=== PATIENT | female | born 1950 | race Caucasian/White ===

== ENCOUNTER → 2017-05-16 | Outpatient (CLI) | payer OTHER | END | disposition home or self-care (01) | LOC: OIH 14:51 | PROVIDERS: ATTEND Internal Medicine | DX: Z13.6 Encounter for screening for cardiovascular disorders (principal) | CPT/HCPCS: 75571 ==

== ENCOUNTER → 2019-07-02 | Outpatient (CLI) | payer OTHER | END | disposition home or self-care (01) | LOC: RAH 08:09 | PROVIDERS: ATTEND Internal Medicine | DX: Z12.31 Encounter for screening mammogram for malignant neoplasm of breast (principal) | CPT/HCPCS: 77067 ==

== ENCOUNTER → 2020-05-18 | Outpatient (CLI) | payer OTHER | END | disposition home or self-care (01) | LOC: OIH 14:14 | PROVIDERS: ATTEND Internal Medicine | DX: M19.071 Primary osteoarthritis, right ankle and foot (principal); M19.072 Primary osteoarthritis, left ankle and foot; M19.042 Primary osteoarthritis, left hand; M19.041 Primary osteoarthritis, right hand; M19.011 Primary osteoarthritis, right shoulder | CPT/HCPCS: 73030; 73630 ==

== ENCOUNTER → 2021-06-08 | Outpatient (CLI) | payer OTHER | END | disposition home or self-care (01) | LOC: RAH 14:46 | PROVIDERS: ATTEND Internal Medicine | DX: R92.1 Mammographic calcification found on diagnostic imaging of breast (principal); R92.8 Other abnormal and inconclusive findings on diagnostic imaging of breast | CPT/HCPCS: 76641; 77065 ==

== ENCOUNTER → 2022-06-29 | Outpatient (CLI) | payer OTHER | END | disposition home or self-care (01) | LOC: RAH 13:27 | PROVIDERS: ATTEND Nurse Practitioner Family | DX: Z12.31 Encounter for screening mammogram for malignant neoplasm of breast (principal) | CPT/HCPCS: 77067 ==

== ENCOUNTER → 2023-07-19 | Outpatient (CLI) | payer OTHER | END | disposition home or self-care (01) | LOC: RAH 14:00 | PROVIDERS: ATTEND Internal Medicine | DX: Z12.31 Encounter for screening mammogram for malignant neoplasm of breast (principal) | CPT/HCPCS: 77067 ==

== ENCOUNTER → 2023-09-12 | Outpatient (CLI) | payer OTHER | END | disposition home or self-care (01) | LOC: RAH 10:08 | PROVIDERS: ATTEND Internal Medicine | DX: M85.89 Other specified disorders of bone density and structure, multiple sites (principal); Z78.0 Asymptomatic menopausal state | CPT/HCPCS: 77080 ==

== ENCOUNTER → 2023-12-20 | Outpatient (CLI) | payer OTHER | END | disposition home or self-care (01) | LOC: RAH 08:09 | PROVIDERS: ATTEND Internal Medicine | DX: N32.89 Other specified disorders of bladder (principal); R10.30 Lower abdominal pain, unspecified | CPT/HCPCS: 76700; 76857 ==

== ENCOUNTER 2024-04-12 09:29 | Emergency (ER) | payer OTHER ==
[~2024-04-12] VITALS: Ht 149.9 cm; Wt 65.8 kg
[~2024-04-12 09:29] MED LIST: APIX5TAB PO; ATOR40TA69 PO; BENZ-226 PO; CEFD300C3 PO; CYAN-35 PO; DOXY100T2 PO; DULO60CA64 PO; FLUT16H NS; FOLI1 PO; INFL100I INJ; INUL2TAB5 PO; LACT10SO9 PO; LORA10TA7 PO; MELA5CAP PO; METH2.5T6 PO; PRED20B PO; PRED5TAB PO
--- NOTE | 2024-04-12 10:13 | ERN ---
ED Note History of Present Illness Stated Complaint: RIGHT LEG Chief Complaint: Lower Extremity Pain/Injury Time Seen by MD: 10:03 Dictation: PATIENT IS A 73-YEAR-OLD FEMALE COMING IN WITH RIGHT CALF PAIN AND SWELLING ONSET TWO DAYS PRIOR TO ARRIVAL NO FEVER NO CHILLS NO BACK PAIN NO SCIATICA. SHE HAS A HISTORY OF PES AND WAS JUST DISCHARGED FROM [facility] TWO DAYS AGO AND HAS BEEN TREATED FOR COMMUNITY-ACQUIRED PNEUMONIA AND RESIDUAL PE. DISTAL NEUROVASCULAR CMS GROSSLY INTACT TO RIGHT LEG. LEG IS WARM WITH DISTAL REFILL BRISK Allergies: Coded Allergies: No Known Drug Allergies (Unverified Allergy, Unknown, 04/05/24) Home Meds Active Scripts Cefdinir (Cefdinir) 300 Mg Capsule, 1 CAP PO BID for 10 Days, #20 CAP 0 Refills Prov:LAYA CANDELARIA 04/10/24 Prednisone (Deltasone/Orasone [Bulk]) 20 Mg Tab, 20 MG PO DAILY, #5 TAB 0 Refills Prov:LAYA CANDELARIA 04/10/24 Doxycycline Hyclate (Doxycycline Hyclate) 100 Mg Tablet, 100 MG PO BID, #10 TAB 0 Refills Prov:LAYA CANDELARIA 04/10/24 Benzonatate (Benzonatate) 100 Mg Capsule, 200 MG PO Q8H, #30 CAP 0 Refills as needed for cough Prov:LAYA CANDELARIA 04/10/24 Atorvastatin Calcium (LIPITOR) 40 Mg Tablet, 40 MG PO HS, #30 TAB 1 Refill Prov:LAYA CANDELARIA 04/10/24 Apixaban (Eliquis) 5 Mg Tablet, 10 MG PO BID, #35 TAB 1 Refill take by mouth 2 tablets twice a day for 4 days then 1 tablet twice a day from then on Prov:LAYA CANDELARIA 04/10/24 Reported Medications Infliximab (Remicade) 100 Mg Inj, 100 MG INJ AD for RHEUMATOID ARTHRITIS, ML INFUSION GIVEN IN MD OFFICE EVREY OTHER MONTH 04/06/24 Cyanocobalamin (Vitamin B-12) (Vitamin B-12) 1,000 Mcg Capsule, 1 CAP PO DAILY for 30 Days, #30 CAP 0 Refills 04/06/24 Prednisone (Prednisone) 5 Mg Tablet, 1 TAB PO DAILY for 30 Days, #30 TAB 0 Refills 04/06/24 Methotrexate Sodium (Methotrexate) 2.5 Mg Tablet, 6 TAB PO QWEEK for 28 Days, #24 TAB 0 Refills 04/06/24 Melatonin (Melatonin) 5 Mg Capsule, 1 CAP PO HS for sleep for 30 Days, #30 CAP 0 Refills 04/06/24 Loratadine (Loratadine) 10 Mg Tablet, 10 MG PO DAILY, TAB 04/06/24 Inulin (Fiber Gummies) 2 Gram Tab.chew, 2 GM PO DAILY, TAB.CHEW 04/06/24 Lactulose (Lactulose) 20 Gram/30 Ml Solution, 20 GM PO DAILY PRN for CONSTIPATION, ML 04/06/24 Folic Acid (Folvite) 1 Mg Tab, 1 MG PO DAILY, TAB 04/06/24 Fluticasone Propionate (Fluticasone Propionate) 50 Mcg/Actuation [place].susp, 2 SPRAY NS BID, #16 GM 0 Refills 04/06/24 Duloxetine HCl (Duloxetine HCl) 60 Mg Capsule.dr, 1 CAP PO DAILY for 30 Days, #30 CAP 0 Refills 04/06/24 Discontinued Reported Medications Simvastatin (Simvastatin) 20 Mg Tablet, 1 TAB PO HS for 30 Days, #30 TAB 0 Refills 04/06/24 Past Medical History Past Medical History: COPD, Other Additional Past Medical Hx: RA, OSTOPENIA, PNA, PE. Surgical History: Other Surgical History Other: HERNIA SXX3 History: Not Applicable RN Note Reviewed/Agreed w/PFSH: Yes Review of System Dictation CONSTITUTIONAL: Negative except for HPI HEAD/FACE: Negative except for HPI EENT: Negative except for HPI RESPIRATORY: Negative except for HPI GASTROINTESTINAL/ABDOMINAL: Negative except for HPI GENITOURINARY: Negative except for HPI MUSCULOSKELETAL: Negative except for HPI right leg pain with calf tell swelling tenderness INTEGUMENTARY: Negative except for HPI NEUROLOGICAL/PSYCH: Negative except for HPI HEMATOLOGIC/LYMPHATIC: Negative except for HPI All Systems Negative, Except as noted above. 13 point review of systems assessed and all negative except for above. Initial Vital Sign VS Vital Signs Date Time Temp Pulse Resp B/P (MAP) Pulse Ox O2 Delivery O2 Flow Rate FiO2 04/12/24 09:33 98.1 115 22 149/87 97 Room Air 0 04/12/24 09:39 21 Physical Exam Dictation Vital Signs reviewed General Appearance: Alert, oriented x 3, mild acute distress, well developed, nourished. Head and Face: non-traumatic. Eyes: PERRL, pink conjunctivas, eyelid no trauma, anterior chamber with arcus senilis. Ears: Pinnas intact and no signs of trauma or erythema ear canals clear and no discharge TM no erythema Nose: No discharge, no bleeding. Oropharynx: Mouth normal, tongue pink, pharynx clear,no erythema, tonsils no exudates, no abscesses noted, mucous membrane moist Neck: Supple, non-tender, no thyromegaly, no masses, no JVD, no bruits Breast:Deferred Chest:No tenderness, no crepitus, no paradoxical movement, no retractions Lungs:Clear, well-ventilated, symmetric, no rales, no wheezing, no rhonchi, no stridor, good breath sounds bilaterally Heart: Regular rate, regular rhythm, no murmur, no gallops Vascular: no peripheral edema, Abdomen: Soft, positive bowel sounds, nondistended, no guarding, nontender, no rebound, no masses no hepatomegaly, no splenomegaly, no Yañez's sign, no hernias. Rectal: Deferred Genital: Deferred Neurological: Normal speech, motor function intact, sensory function intact Musculoskeletal: Neck nontender, full range of motion, back nontender, full range of motion, Extremities: Mild right calf tenderness with palpation, negative Homans sign. Distal neurovascular CMS intact leg is warm to touch Skin: Color pink, dry, no turgor, no rash, no lacerations, no abrasions, no contusions. Lymphatic: Deferred Results (Laboratory/Radiology) Laboratory/Radiology Laboratory Tests Test 04/12/24 10:48 White Blood Count 19.3 K/uL (4.8-10.8) H Red Blood Count 4.05 MIL/uL (4.00-5.50) Hemoglobin 12.9 g/dL (12.0-16.0) Hematocrit 37.7 % (36-48) Mean Corpuscular Volume 93.1 fL (79-99) Mean Corpuscular Hemoglobin 31.9 pg (27.0-33.0) Mean Corpuscular Hemoglobin Concent 34.2 g/dL (32.0-36.0) Red Cell Distribution Width 16.2 % (11.0-15.5) H Platelet Count 345 K/uL (130-400) Mean Platelet Volume 9.3 fL (7.5-10.5) Immature Granulocyte % (Auto) 7.5 % (0-1) H Neutrophils (%) (Auto) 73.7 % (40.0-77.0) Lymphocytes (%) (Auto) 9.1 % (21.0-51.0) L Monocytes (%) (Auto) 8.9 % (3.0-13.0) Eosinophils (%) (Auto) 0.2 % (0.0-8.0) Basophils (%) (Auto) 0.6 % (0.0-5.0) Neutrophils # (Auto) 14.2 K/uL (1.8-7.7) H Lymphocytes # (Auto) 1.8 K/uL (1.0-4.8) Monocytes # (Auto) 1.7 K/uL (0.1-1.0) H Eosinophils # (Auto) 0.04 K/uL (0.00-0.70) Basophils # (Auto) 0.12 K/uL (0.00-0.20) Absolute Immature Granulocyte (auto 1.44 K/uL (0-1) H Nucleated Red Blood Cells 0.0 % (0.0-0.19) Prothrombin Time 11.9 SEC (9.6-11.6) H Prothromb Time International Ratio 1.07 (0.85-1.15) Activated Partial Thromboplast Time 28.4 SEC (26.3-35.5) Sodium Level 140 mmol/L (136-145) Potassium Level 3.7 mmol/L (3.5-5.1) Chloride Level 105 mmol/L (101-111) Carbon Dioxide Level 27 mmol/L (21-32) Blood Urea Nitrogen 25 mg/dL (7-18) H Creatinine 0.7 mg/dL (0.5-1.0) Glomerular Filtration Rate Calc 90 mL/min (>90) Random Glucose 128 mg/dL (70-105) H Total Calcium 9.6 mg/dL (8.5-10.1) 1045/DOPPLER ULTRASOUND RIGHT LEG DEMONSTRATES NEGATIVE DVT Labs Reviewed?: Yes ED Course ED Course Orders Procedure Category Date Status Time Us Venous Doppler US 04/12/24 Resulted Unilateral 10:10 Pt And Ptt LAB 04/12/24 Complete 10:10 Cbc With Differential LAB 04/12/24 Complete 10:10 Basic Metabolic Panel LAB 04/12/24 Complete 10:10 Vital Signs Date Time Temp Pulse Resp B/P (MAP) Pulse Ox O2 Delivery O2 Flow Rate FiO2 04/12/24 10:05 98.1 81 18 153/95 94 Room Air* 0 21 04/12/24 09:39 98.1 115 22 149/87 97 Room Air* 0 21 04/12/24 09:33 98.1 115 22 149/87 97 Room Air 0 1212/SPOKE WITH PATIENT AT LENGTH REGARDING LAB FINDINGS TO INCLUDE LEUKOCYTOSIS AT 19.3 1000. SHE SHOWED ME HER MEDICATIONS FROM HER DISCHARGE AND SHE IS TAKING DOXYCYCLINE AND AZITHROMYCIN AT HOME, ALSO IS ON PREDNISONE 20 MG DAILY. SHE STATES SHE DOES NOT FEEL BAD DOES NOT HAVE ANY SHORTNESS A BREATH AND DOES NOT WISH TO BE ADMITTED TO THE HOSPITAL. SHE IS AFEBRILE AT THIS TIME. NO OTHER COMPLAINTS OF VOICE AND SHE WAS REASSURED THAT THERE WAS NO EMBOLIC PROCESS GOING ON TWO THE LEFT LEG. SHE AGREED SHE WOULD COME BACK IF SHE FELT ANY WORSE HOWEVER IS REASSURED THAT THERE IS NO CLOT. Medical Decision Making MDM MDM: DIFFERENTIAL DIAGNOSIS: DVT RIGHT LEG, ELECTROLYTE IMBALANCE/D EHYDRATION/ARTHRALGIA RATIONALE: TESTS CONSIDERED AND ORDERED SECONDARY TO SHARED DECISION MAKING INCLUDE: RADIOLOGY/LABS PREVIOUS OUTSIDE RECORDS REVIEWED: OLD ER VISITS. REVIEWED INCLUDING HER DISCHARGED TWO DAYS AGO FOR COMMUNITY-ACQUIRED PNEUMONIA/BRONCHITIS RISK OF COMPLICATION AND/OR MORBIDITY OR MORTALITY OF PATIENT MANAGEMENT: NONE MEDICATIONS-PER MEDICATION RECONCILIATION NEED FOR HOSPITALIZATION: PATIENT DOES NOT MEET CRITERIA FOR HOSPITALIZATION. PATIENT REFUSES AT THIS TIME DESPITE LEUKOCYTOSIS AND MY DISCUSSION OF ADMISSION NEED FOR EMERGENCY MAJOR/MINOR SURGERY: NO THERE ARE NO SOCIAL CONCERNS WITH THIS PATIENT. PRESCRIPTION DRUG MANAGEMENT ALBUTEROL PRESCRIPTIONS WILL INCLUDE SYMPTOMATIC CARE PATIENT'S PRIOR EXTERNAL MEDICAL RECORDS FROM OTHER ER VISITS WERE REVIEWED BY ME INDICATED. PRIOR TESTING AND RESULTS FROM PREVIOUS VISITS WERE REVIEWED. PRIOR TESTS WERE TAKEN INTO ACCOUNT WITH MEDICAL DECISION MAKING AND RESOURCE UTILIZATION, INDEPENDENT HISTORIAN/HISTORIANS WERE USED TO OBTAIN COMPLETE MEDICAL HISTORY. I INDEPENDENTLY INTERPRETED THE TEST THAT WERE PERFORMED, RESULTS WERE REVIEWED BY ME AND CONSIDERED FINDINGS ON RADIOLOGY IF ORDERED. MEDICAL MANAGEMENT AND EXAMINATION INTERPRETATION DISCUSSIONS WERE HAD BY ME WIT H OTHER QUALIFIED HEALTHCARE PROFESSIONALS INDICATED FOR THE PATIENT'S CARE. DX & DISP Disposition: Discharge Departure Impression: Primary Impression: Pain in right lower leg Additional Impressions: Leukocytosis (leucocytosis), Hyperglycemia, History of COPD Condition: Stable Scripts Albuterol Sulfate (Ventolin Hfa/Proventil Hfa/Proair Hfa) 90 Mcg Puff 2 PUFF IH Q4H for WHEEZING, #1 INHALER 1 Refill Prov: GRANT DUPONT NP 04/12/24 Additional Instructions: FOLLOW-UP WITH PRIMARY CARE PROVIDER IN 1 TO 2 DAYS. TAKE MEDICATIONS DIRECTED HERE IN THE EMERGENCY ROOM. OKAY TO CONTINUE HOME MEDICATIONS UNLESS OTHERWISE DISCUSSED DURING YOUR VISIT IN THE EMERGENCY ROOM TODAY. RETURN TO YOUR NEAREST EMERGENCY ROOM IF SYMPTOMS WORSEN OR IF THERE IS NO IMPROVEMENT. CALL 911 IF YOU NEED IMMEDIATE ASSISTANCE. TAKE TYLENOL OR MOTRIN [id number] NEEDED AND IF NO CONTRAINDICATIONS ARE PRESENT. INCREASE ORAL HYDRATION. A WOUND CULTURE OR URINE CULTURE WAS ORDERED HERE IN THE EMERGENCY ROOM DEPARTMENT PLEASE FOLLOW-UP WITH PRIMARY CARE PROVIDER AND ADVISE THEM TO GET REPEAT PORTS FROM OUR FACILITY. IF YOU HAD ANY BURT WRAP/SPLINTS THAT WERE APPLIED HERE, PLEASE DO NOT REMOVE THEM UNTIL YOU SEE YOUR PRIMARY CARE OR SPECIALTY. DIET AND ACTIVITY TOLERATED. CONTINUE ALL YOUR MEDICATIONS FROM YOUR HOSPITAL DISCHARGE TWO DAYS AGO. USE ALBUTEROL INHALER EVERY4 HOURS WHILE AWAKE NEEDED FOR SHORTNESS A BREATH. FOLLOW UP WITH YOUR PRIMARY CARE DOCTOR. Referrals: STEPHEN LEONARD MD (PCP) Time of Disposition: 12:15 I have reviewed the case, and I agree with, Diagnosis and Plan GRANT DUPONT NP Apr 12, 2024 10:13
--- NOTE | 2024-04-12 10:56 | HMCIMG ---
US VENOUS DOPPLER UNILATERAL REASON: RIGHT CALF SWELLING TENDERNESS. HISTORY OF PE COMPARISON: None Technique: Right venous doppler ultrasound was performed with spectral analysis and color flow imaging technique. FINDINGS: There is a normal appearance of the common femoral, deep femoral, the profunda femoris and popliteal veins. Proximal calf veins appear normal as well. There is normal response to compression and augmentation. There is no evidence of deep venous thrombosis. IMPRESSION: Normal right lower extremity venous Doppler ultrasound.
[2024-04-12 10:57] LABS: BASOPHILS # (AUTO) 0.12 K/uL (0.00-0.20); BASOPHILS % (AUTO) 0.6 % (0.0-5.0); EOSINOPHILS # (AUTO) 0.04 K/uL (0.00-0.70); EOSINOPHILS % (AUTO) 0.2 % (0.0-8.0); HEMATOCRIT 37.7 % (36-48); IMMATURE GRANULOCYTE ABSOLUTE 1.44 K/uL (0-1); LYMPHOCYTES # (AUTO) 1.8 K/uL (1.0-4.8); LYMPHOCYTES % (AUTO) 9.1 % (21.0-51.0); MEAN CORPUSCULAR HEMOGLOBIN 31.9 pg (27.0-33.0); MEAN CORPUSCULAR HGB CONC 34.2 g/dL (32.0-36.0); MEAN CORPUSCULAR VOLUME 93.1 fL (79-99); MONOCYTES # (AUTO) 1.7 K/uL (0.1-1.0); MONOCYTES % (AUTO) 8.9 % (3.0-13.0); NEUTROPHILS # (AUTO) 14.2 K/uL (1.8-7.7); NEUTROPHILS % (AUTO) 73.7 % (40.0-77.0); PLATELET COUNT (AUTO) 345 K/uL (130-400); RED BLOOD CELL COUNT(AUTO) 4.05 MIL/uL (4.00-5.50); RED CELL DISTRIBUTION WIDTH 16.2 % (11.0-15.5); WHITE BLOOD COUNT (AUTO) 19.3 K/uL (4.8-10.8)
[2024-04-12 11:14] LABS: CREATININE 0.7 mg/dL (0.5-1.0); POTASSIUM 3.7 mmol/L (3.5-5.1)
[2024-04-12 11:34] LABS: INR 1.07 (0.85-1.15); PROTHROMBIN TIME 11.9 SEC (9.6-11.6)
[2024-04-12 11:35] LABS: PARTIAL THROMBOPLASTIN TIME 28.4 SEC (26.3-35.5)
[2024-04-12] MEDS ORDERED: ALBUHFA IH (12:16)
[2024-04-12 13:30] VITALS: BP 120/87; PULSE 87; RESP 17; TEMP 98.1; O2SAT 97
== END 2024-04-12 13:51 | disposition home or self-care (01) ==
LOC: EDH 09:29
DX: M79.661 Pain in right lower leg (principal); D72.829 Elevated white blood cell count, unspecified; R73.9 Hyperglycemia, unspecified; J44.9 Chronic obstructive pulmonary disease, unspecified; Z79.01 Long term (current) use of anticoagulants; Z79.52 Long term (current) use of systemic steroids
CPT/HCPCS: 36415; 80048; 85025; 85610; 85730; 93971; 99284

== ENCOUNTER 2024-08-20 12:23 | Emergency (ER) | payer OTHER ==
[~2024-08-20] VITALS: Ht 152.4 cm; Wt 65.8 kg
[~2024-08-20 12:23] MED LIST changes: +ALBUHFA IH
--- NOTE | 2024-08-20 13:19 | EKG ---
[facility] Test Date: 2024-08-20 Test Time: 13:16:27 Pat Name: ODALYS TINAJERO Department: ED Room: Gender: F [employer]: [id number] : [id number] Requested By: THU MENDEZ Order Number: [id number] Reading MD: Hi Carlton Measurements Intervals [place] Rate: 65 P: 39 SD: 169 QRS: -32 QRSD: 81 T: 16 QT: 412 QTc: 429 Interpretive Statements Sinus rhythm Low voltage, precordial leads Compared to ECG 04/26/2024 21:11:01 Low QRS voltage now present Left anterior fascicular block no longer present Left ventricular hypertrophy no longer present Q waves no longer present Electronically Signed On 08-20-2024 17:34:47 CDT by Hi Carlton Please click the below link to view image of tracing.
[2024-08-20 13:21] LABS: BASOPHILS # (AUTO) 0.04 K/uL (0.00-0.20); BASOPHILS % (AUTO) 0.5 % (0.0-5.0); EOSINOPHILS # (AUTO) 0.07 K/uL (0.00-0.70); HEMATOCRIT 35.5 % (36-48); IMMATURE GRANULOCYTE ABSOLUTE 0.03 K/uL (0-1); LYMPHOCYTES # (AUTO) 2.3 K/uL (1.0-4.8); LYMPHOCYTES % (AUTO) 31.2 % (21.0-51.0); MEAN CORPUSCULAR HEMOGLOBIN 31.8 pg (27.0-33.0); MEAN CORPUSCULAR HGB CONC 33.5 g/dL (32.0-36.0); MEAN CORPUSCULAR VOLUME 94.9 fL (79-99); MONOCYTES # (AUTO) 0.9 K/uL (0.1-1.0); MONOCYTES % (AUTO) 11.9 % (3.0-13.0); PLATELET COUNT (AUTO) 315 K/uL (130-400); RED BLOOD CELL COUNT(AUTO) 3.74 MIL/uL (4.00-5.50); RED CELL DISTRIBUTION WIDTH 14.4 % (11.0-15.5); WHITE BLOOD COUNT (AUTO) 7.3 K/uL (4.8-10.8)
[2024-08-20 13:31] LABS: CREATININE 0.7 mg/dL (0.5-1.0); POTASSIUM 3.7 mmol/L (3.5-5.1)
[2024-08-20 13:36] LABS: MAGNESIUM 2.2 mg/dL (1.80-2.40)
[2024-08-20 13:44] LABS: B-TYPE NATRIURETIC PEPTIDE 7 pg/mL (0-100)
--- NOTE | 2024-08-20 13:50 | HMCIMG ---
Exam Type: CHEST 1VW Clinical Information: sob Comparison: None Findings: The lungs are clear of infiltrates. The heart is normal in size. The bony and soft tissue structures of the chest are unremarkable. Impression: Clear lungs.
--- NOTE | 2024-08-20 16:05 | ERN ---
General Chief Complaint: Weakness Stated Complaint: DIZZY,FEELING LIKE FAINTING,SOB,PAIN IN SHOULDER Time Seen by MD: 12:27 Time Seen by Midlevel: 12:27 Source: patient History of Present Illness Initial Comments The patient is a 74-year-old female with a past medical history of rheumatoid arthritis and pulmonary embolism on anticoagulation presenting to the emergency department after she had an episode of not feeling well. She reports generalized body weakness and decided to report to the ER for further evaluation. On arrival she does report feeling improved but still reports significant amount of pain regarding her rheumatoid arthritis. Denies any other symptoms Allergies: Coded Allergies: No Known Drug Allergies (Unverified Allergy, Unknown, 04/05/24) Home Meds Active Scripts Nitrofurantoin/Nitrofuran Mac (Macrobid) 100 Mg Cap, 1 CAP PO BID for 7 Days, #14 CAP 0 Refills Prov:THU MENDEZ 08/20/24 Albuterol Sulfate (Ventolin Hfa/Proventil Hfa/Proair Hfa) 90 Mcg Puff, 2 PUFF IH Q4H for WHEEZING, #1 INHALER 1 Refill Prov:GRANT DUPONT NP 04/12/24 Cefdinir (Cefdinir) 300 Mg Capsule, 1 CAP PO BID for 10 Days, #20 CAP 0 Refills Prov:LAYA CANDELARIA 04/10/24 Prednisone (Deltasone/Orasone [Bulk]) 20 Mg Tab, 20 MG PO DAILY, #5 TAB 0 Refill s Prov:LAYA CANDELARIA 04/10/24 Doxycycline Hyclate (Doxycycline Hyclate) 100 Mg Tablet, 100 MG PO BID, #10 TAB 0 Refills Prov:LAYA CANDELARIA 04/10/24 Benzonatate (Benzonatate) 100 Mg Capsule, 200 MG PO Q8H, #30 CAP 0 Refills as needed for cough Prov:LAYA CANDELARIA 04/10/24 Atorvastatin Calcium (LIPITOR) 40 Mg Tablet, 40 MG PO HS, #30 TAB 1 Refill Prov:LAYA CANDELARIA 04/10/24 Apixaban (Eliquis) 5 Mg Tablet, 10 MG PO BID, #35 TAB 1 Refill take by mouth 2 tablets twice a day for 4 days then 1 tablet twice a day from then on Prov:LAYA CANDELARIA LEAD [employer] DEVELOPER 04/10/24 Reported Medications Infliximab (Remicade) 100 Mg Inj, 100 MG INJ AD for RHEUMATOID ARTHRITIS, ML INFUSION GIVEN IN MD OFFICE EVREY OTHER MONTH 04/06/24 Cyanocobalamin (Vitamin B-12) (Vitamin B-12) 1,000 Mcg Capsule, 1 CAP PO DAILY for 30 Days, #30 CAP 0 Refills 04/06/24 Prednisone (Prednisone) 5 Mg Tablet, 1 TAB PO DAILY for 30 Days, #30 TAB 0 Refills 04/06/24 Methotrexate Sodium (Methotrexate) 2.5 Mg Tablet, 6 TAB PO QWEEK for 28 Days, #24 TAB 0 Refills 04/06/24 Melatonin (Melatonin) 5 Mg Capsule, 1 CAP PO HS for sleep for 30 Days, #30 CAP 0 Refills 04/06/24 Loratadine (Loratadine) 10 Mg Tablet, 10 MG PO DAILY, TAB 04/06/24 Inulin (Fiber Gummies) 2 Gram Tab.chew, 2 GM PO DAILY, TAB.CHEW 04/06/24 Lactulose (Lactulose) 20 Gram/30 Ml Solution, 20 GM PO DAILY PRN for CONSTIPATION, ML 04/06/24 Folic Acid (Folvite) 1 Mg Tab, 1 MG PO DAILY, TAB 04/06/24 Fluticasone Propionate (Fluticasone Propionate) 50 Mcg/Actuation [place].susp, 2 SPRAY NS BID, #16 GM 0 Refills 04/06/24 Duloxetine HCl (Duloxetine HCl) 60 Mg Capsule.dr, 1 CAP PO DAILY for 30 Days, #30 CAP 0 Refills 04/06/24 Past Medical History Past Medical History: Arthritis, COPD, Other Medical History Other: RA, OSTOPENIA, PNA, PE. Past Surgical History: Other Surgical History Other: HERNIA SX3, BILATRAL FEET Female( History) History: Not Applicable ROS Dictation CONSTITUTIONAL: Negative except for HPI HEAD/FACE: Negative except for HPI EENT: Negative except for HPI RESPIRATORY: Negative except for HPI GASTROINTESTINAL/ABDOMINAL: Negative except for HPI GENITOURINARY: Negative except for HPI MUSCULOSKELETAL: Negative except for HPI INTEGUMENTARY: Negative except for HPI NEUROLOGICAL/PSYCH: Negative except for HPI HEMATOLOGIC/LYMPHATIC: Negative except for HPI All Systems Negative, Except as noted above. 13 point review of systems assessed and all negative except for above. Physical Exam Physical Exam Dictation Vital Signs reviewed General Appearance: Alert, oriented x 3, no acute distress, well developed, nourished. Head and Face: non-traumatic. Eyes: PERRL, pink conjunctivas, eyelid no trauma, anterior chamber with arcus senilis. Ears: Pinnas intact and no signs of trauma or erythema ear canals clear and no discharge TM no erythema Nose: No discharge, no bleeding. Oropharynx: Mouth normal, tongue pink, pharynx clear,no erythema, tonsils no exudates, no abscesses noted, mucous membrane moist Neck: Supple, non-tender, no thyromegaly, no masses, no JVD, no bruits Breast:Deferred Chest:No tenderness, no crepitus, no paradoxical movement, no retractions Lungs:Clear, well-ventilated, symmetric, no rales, no wheezing, no rhonchi, no stridor, good breath sounds bilaterally Heart: Regular rate, regular rhythm, no murmur, no gallops Vascular: no peripheral edema, Abdomen: Soft, positive bowel sounds, nondistended, no guarding, nontender, no rebound, no masses no hepatomegaly, no splenomegaly, no Yañez's sign, no hernias. Rectal: Deferred Genital: Deferred Neurological: Normal speech, motor function intact, sensory function intact Musculoskeletal: Neck nontender, full range of motion, back nontender, full range of motion, Extremities: nontender, full range of motion Skin: Color pink, dry, no turgor, no rash, no lacerations, no abrasions, no contusions. Lymphatic: Deferred Results Laboratory and Microbiology Lab and Micro Result Laboratory Tests Test 08/20/24 13:10 08/20/24 16:19 White Blood Count 7.3 K/uL (4.8-10.8) Red Blood Count 3.74 MIL/uL (4.00-5.50) L Hemoglobin 11.9 g/dL (12.0-16.0) L Hematocrit 35.5 % (36-48) L Mean Corpuscular Volume 94.9 fL (79-99) Mean Corpuscular Hemoglobin 31.8 pg (27.0-33.0) Mean Corpuscular Hemoglobin Concent 33.5 g/dL (32.0-36.0) Red Cell Distribution Width 14.4 % (11.0-15.5) Platelet Count 315 K/uL (130-400) Mean Platelet Volume 8.9 fL (7.5-10.5) Immature Granulocyte % (Auto) 0.4 % (0-1) Neutrophils (%) (Auto) 55.0 % (40.0-77.0) Lymphocytes (%) (Auto) 31.2 % (21.0-51.0) Monocytes (%) (Auto) 11.9 % (3.0-13.0) Eosinophils (%) (Auto) 1.0 % (0.0-8.0) Basophils (%) (Auto) 0.5 % (0.0-5.0) Neutrophils # (Auto) 4.0 K/uL (1.8-7.7) Lymphocytes # (Auto) 2.3 K/uL (1.0-4.8) Monocytes # (Auto) 0.9 K/uL (0.1-1.0) Eosinophils # (Auto) 0.07 K/uL (0.00-0.70) Basophils # (Auto) 0.04 K/uL (0.00-0.20) Absolute Immature Granulocyte (auto 0.03 K/uL (0-1) Nucleated Red Blood Cells 0.0 % (0.0-0.19) Sodium Level 143 mmol/L (136-145) Potassium Level 3.7 mmol/L (3.5-5.1) Chloride Level 106 mmol/L (101-111) Carbon Dioxide Level 26 mmol/L (21-32) Blood Urea Nitrogen 28 mg/dL (7-18) H Creatinine 0.7 mg/dL (0.5-1.0) Glomerular Filtration Rate Calc 90 mL/min (>90) Random Glucose 89 mg/dL (70-105) Total Calcium 9.2 mg/dL (8.5-10.1) Magnesium Level 2.20 mg/dL (1.80-2.40) Total Creatine Kinase 105 U/L (21-232) # Troponin I High Sensitivity 5 ng/L (4-50) B-Type Natriuretic Peptide 7 pg/mL (0-100) Urine Color LIGHT-YELLOW (YELLOW) Urine Appearance CLEAR (CLEAR) Urine pH 5.5 (5.0-8.0) Urine Specific [place] 1.022 (1.001-1.031) Urine Protein NEGATIVE mg/dL (NEGATIVE) Urine Glucose (UA) NEGATIVE mg/dL (NEGATIVE) Urine Ketones 10 mg/dL (NEGATIVE) H Urine Occult Blood SMALL (NEGATIVE) H Urine Nitrate 1+ (NEGATIVE) H Urine Bilirubin NEGATIVE mg/dL (NEGATIVE) Urine Urobilinogen 0.2 mg/dL (0.2-1.0) Urine Leukocyte Esterase 500 [place]/uL (NEGATIVE) H Urine RBC 11-25 /HPF (0-1) H Urine WBC TNTC /HPF (0-1) H Urine Squamous Epithelial Cells RARE /HPF (0-2) Urine Bacteria FEW /HPF (None Seen) Labs Reviewed?: Yes MDM MDM: The patient is a 74-year-old female with a past medical history of rheumatoid arthritis and pulmonary embolism on anticoagulation presenting to the emergency department after she had an episode of not feeling well. She reports generalized body weakness and decided to report to the ER for further evaluation. On arrival she does report feeling improved but still reports significant amount of pain regarding her rheumatoid arthritis. Denies any other symptoms. On physical examination the patient is in no acute distress. Initial vital signs are stable. CBC shows no anemia, no thrombocytopenia, no leukocytosis. Chemistries unremarkable. Renal function is normal. Cardiac enzymes are negative. Differential diagnosis: Dehydration, electrolyte abnormalities, anemia There are no social concerns with this patient. Prescription drug management Prescriptions will include: None Medical management and examination interpretation discussions were had by me with other qualified healthcare professionals as indicated for the patient's care. ED Course Orders Procedure Category Date Status Time 12 Lead Ekg Tracing- EKG 08/20/24 Complete Technical 12:52 Cbc With Differential LAB 08/20/24 Complete 12:52 Basic Metabolic Panel LAB 08/20/24 Complete 12:52 B-Type Natriuretic LAB 08/20/24 Complete Peptide 12:52 Creatine Kinase, Total LAB 08/20/24 Complete 12:52 Magnesium LAB 08/20/24 Complete 12:52 Troponin I High LAB 08/20/24 Complete Sensitivity 12:52 Chest 1vw RAD 08/20/24 Resulted 12:52 Urinalysis Profile LAB 08/20/24 Complete 12:52 Ketorolac PHA 08/20/24 Complete Tromethamine 15mg/Ml 16:00 Culture Urine GABBY 08/20/24 In Process 16:36 Ceftriaxone 1g Vial PHA 08/20/24 Complete (Rocephine 1g Inj) 17:00 Lidocaine Hcl 1% 20ml PHA 08/20/24 Complete Vial (Lidocaine Hc 16:48 Current Medications Medications (Trade) Dose Ordered Sig/Radha Route PRN Reason Start Time Stop Time Status Last Admin Dose Admin Ceftriaxone Sodium (ROCEphine 1G INJ) 1 gm ONCE ONCE IM 08/20/24 17:00 08/20/24 17:01 DC 08/20/24 17:01 Ketorolac Tromethamine (toRADol) 15 mg ONCE ONCE IM 08/20/24 16:00 08/20/24 16:01 DC 08/20/24 16:26 Lidocaine HCl (Lidocaine HCl 1% 20ml Vial) 20 ml STK-MED ONCE .ROUTE 08/20/24 16:48 08/20/24 16:48 DC Vital Signs Date Time Temp Pulse Resp B/P (MAP) Pulse Ox O2 Delivery O2 Flow Rate FiO2 08/20/24 14:45 97.7 68 13 136/71 99 Room Air* 0 21 08/20/24 12:45 97.2 78 20 131/80 99 Room Air DX & DISP Disposition: Discharge Departure Impression: Primary Impression: Generalized weakness Condition: Stable Scripts Nitrofurantoin/Nitrofuran Mac (Macrobid) 100 Mg Cap 1 CAP PO BID for 7 Days, #14 CAP 0 Refills Prov: THU MENDEZ 08/20/24 Additional Instructions: Your blood work today is unremarkable. Please follow up with your primary care doctor in 2-3 days for repeat evaluation. Your EKG shows no evidence of a heart attack. Your chest x-ray is normal. Referrals: STEPHEN LEONARD MD (PCP) Time of Disposition: 16:04 I have reviewed the case, and I agree with, Diagnosis and Plan I performed the substantive portion of the visit. I have reviewed and person ally made and approve the management plan that is documented in the note by myself or the MARKEL. I acknowledge for responsibility for the patient's management plan. THU MENDEZ August 20, 2024 16:05 LILLIAN BARRETO DO August 20, 2024 17:26
[2024-08-20] MEDS: ketOROlac 15MG/ML VIAL (15MG/ML) IM ONE (16:26)
[2024-08-20 16:36] LABS: ADD UA MICROSCOPIC YES; APPEARANCE,URINE CLEAR (CLEAR); BILIRUBIN,URINE NEGATIVE (NEGATIVE); COLOR,URINE LIGHT-YELLOW (YELLOW); GLUCOSE, URINE (UA) NEGATIVE (NEGATIVE); KETONES,URINE 10 mg/dL (NEGATIVE); LEUKOCYTE ESTERASE ,URINE 500 Leu/uL (NEGATIVE); NITRATE,URINE 1+ (NEGATIVE); OCCULT BLOOD,URINE SMALL (NEGATIVE); PH,URINE 5.5 (5.0-8.0); PROTEIN,URINE NEGATIVE (NEGATIVE); UROBILINOGEN,URINE 0.2 mg/dL (0.2-1.0)
[2024-08-20 16:41] LABS: BACTERIA,URINE FEW /HPF (None Seen); MUCUS,URINE RARE LPF (None Seen); SQUAMOUS EPITHELIAL CELL,UR RARE /HPF (0-2); WBC,URINE TNTC /HPF (0-1)
[2024-08-20] MEDS ORDERED: MACR100 PO (16:42)
[2024-08-20] MEDS: cefTRIAXone 1G VIAL IM ONE (17:01)
[2024-08-20] MEDS: LIDOCAINE HCL 1% 20 ML VIAL ONE (17:02)
--- NOTE | 2024-08-20 17:34 | NUR ---
DC PATIENT WAS DC'D BY THU PAK, I EXPLAINED TO PATIENT TO FOLLOW UP WITH PCP, EXPLAINED NEW PRESCRIPTIONS AND PROVIDED INFO BASED ON DIAGNOSIS ANSWERED ALL PATIENTS QUESTIONS, PATIENT AMBULATED OUT OF ED, NO COMPLICATIONS
[2024-08-20 17:35] VITALS: BP 129/64; PULSE 72; RESP 13; TEMP 98; O2SAT 99
== END 2024-08-20 17:30 | disposition home or self-care (01) ==
LOC: EDH 12:23
DX: R53.1 Weakness (principal); J44.9 Chronic obstructive pulmonary disease, unspecified; M19.90 Unspecified osteoarthritis, unspecified site; Z79.01 Long term (current) use of anticoagulants; Z79.52 Long term (current) use of systemic steroids; Z86.711 Personal history of pulmonary embolism; Z79.899 Other long term (current) drug therapy
CPT/HCPCS: 99285; 71045; 82550; 83735; 84484; 80048; 83880; 85025; 87086 ×2; 87186; 81001; 36415; 96372 ×2; 93005; J1885; J0696

== ENCOUNTER → 2025-02-03 | Outpatient (CLI) | payer OTHER ==
[~2025-02-03] MED LIST changes: +MACR100 PO
--- NOTE | 2025-02-05 06:13 | HMCIMG ---
EXAM: MR Cervical Spine Without Intravenous Contrast. CLINICAL HISTORY: Radiculopathy cervical region. TECHNIQUE: Magnetic resonance images of the cervical spine in multiple planes. CONTRAST: None. COMPARISON: None. FINDINGS: The imaged posterior fossa is unremarkable. The craniocervical junction is intact. No acute fracture. Normal lordotic curvature. Normal vertebral body height and marrow signal intensity. Mild disc desiccation with degenerative reduction in disc space at C3-C4, C4-C5, and C5-C6 levels with an anterior osteophyte. No abnormal signal involves the cervical cord. No extra-axial masses. The surrounding soft tissues are unremarkable. Level by level, disease is present as follows: C1-C2: No osteoarthritis. C2-C3: No disc bulge or herniation. No neural foraminal, lateral recess, or spinal canal stenosis. C3-C4: Degenerative reduction in disc space with anterior osteophyte and minimal circumferential 3 mm disc bulge and bilateral C4 uncinate process hypertrophy and facet arthropathy. Moderate narrowing of the left neural foramina and mild narrowing of the right neural foramina, and abutment of the bilateral exiting C4 nerve root. No spinal canal stenosis. C4-C5: Disc desiccation with degenerative reduction in disc space and anterior osteophyte. Bilateral C5 uncinate process hypertrophy is left more than right. Moderate narrowing of the left neural foramina and mild narrowing of the right neural foramina. Abutment of bilateral exiting C5 nerve root, left more than right. No spinal canal stenosis. Mild ligamentum flavum hypertrophy. C5-C6: Mild disc desiccation. Broad-based circumferential 3 mm disc bulge. Mild bilateral facet arthropathy. No significant neural foraminal narrowing or nerve impingement. No spinal canal stenosis. C6-C7: Disc desiccation with degenerative reduction in disc space and anterior osteophyte. Left C7 uncinate process hypertrophy and facet arthropathy. Moderate narrowing of the left neural foramina. Abutment of the left exiting C7 nerve root. C7-T1: No disc bulge or herniation. No neural foraminal, lateral recess, or spinal canal stenosis. IMPRESSION: No evidence of acute fracture or subluxation. Mild disc desiccation with degenerative reduction in disc space at C3-C4, C4-C5, and C5-C6 levels with an anterior osteophyte. Mild to moderate degenerative changes in the cervical spine as described above, most prominent at the C3-C4 level. /Crosby
== END | disposition home or self-care (01) ==
LOC: RAH 13:58
PROVIDERS: ATTEND Internal Medicine
DX: M47.22 Other spondylosis with radiculopathy, cervical region (principal); M50.122 Cervical disc disorder at C5-C6 level with radiculopathy; M48.02 Spinal stenosis, cervical region; M25.78 Osteophyte, vertebrae
CPT/HCPCS: 72141